=== PATIENT | male | born 1940 | race Caucasian/White ===

== ENCOUNTER → 2024-02-08 08:57 | Outpatient (BNVA) | payer MEDICARE, MEDICAID, SELFPAY | PROVIDERS: Visit Provider Nurse Practitioner Gerontology | DX: Z87.438 Personal history of other diseases of male genital organs (principal); R33.8 Other retention of urine; Z96.0 Presence of urogenital implants | CPT/HCPCS: 99205 ==

== ENCOUNTER 2024-03-10 06:19 | Day surgery (SDC) | payer MEDICARE, MEDICAID, SELFPAY ==
[2024-03-10] VITALS (19 sets, daily range): BP systolic 83–131; BP diastolic 30–92; PULSE 50–78; RESP 10–19; TEMP 36–36.3; O2SAT 90–97; BMI 34.7
--- NOTE | 2024-03-10 06:55 | W.PM.HP.N ---
Date of service: 03/10/24 Time of Service: 06:55 Assessment and Plan Assessment and plan (1) History of balanitis: Status: Acute (2) Indwelling urethral catheter present: (3) Paraplegia: (4) Spinal stenosis: (5) Urinary retention: Assessment and plan: We will plan to circumcision. And we will change his urethral catheter today. Ultimately he may want to consider suprapubic tube rather than the urethral catheter. History of Present Illness History of Present Illness Chief Complaint: Balanitis Narrative: This is an 83-year-old gentleman who is new to our practice and his urology records are a bit sketchy at this point. He has a history of urinary retention which required an indwelling catheter. He has apparently been on tamsulosin and has failed at least 1 voiding trial. I am not certain about any additional workup. He has a history of cervical stenosis and was not felt to be a candidate for clean intermittent catheterization. If he is unable to void, he would require some type of chronic indwelling catheter. Discussions have been had regarding placement of a suprapubic tube, but so far the patient would like to continue with the urethral catheter. He has been having cracking and bleeding of the foreskin. He is been treated for recurrent balanitis and is interested in a circumcision to help prevent the frequent balanitis episodes. He is well aware that the procedure will not help his urinary retention. Review of Systems Narrative: No fevers or chills No vision change or dysphasia No diabetes or thyroid dysfunction No hemoptysis Hx A Fib. No chest pain GERD. Chronic constipation. No hepatitis, ulcers, jaundice Parplegia. No seizures or strokes No bleeding disorders or anemia No gout PFSH All Active Problems History of balanitis (Acute) Medical History Colostomy in place IBS (irritable bowel syndrome) Coronary atherosclerosis Cervical cord compression with myelopathy Cervical spinal stenosis Hx of myocardial infarction Unknown per [facility] GERD (gastroesophageal reflux disease) RBBB NSVT (nonsustained ventricular tachycardia) 1st degree AV block Afib Hypomagnesemia 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 Spinal stenosis Urinary retention Sigmoid volvulus Laceration of foreskin Former smoker Indwelling urethral catheter present Lung cancer CAD (coronary artery disease) COPD (chronic obstructive pulmonary disease) Surgical History H/O colectomy Social History Smoking/Tobacco Use Status: Former Tobacco Use Quit Date: 03/10/00 Smoking risk assessment performed?: Yes Alcohol Intake: former Substance use type: does not use Housing: intermediate Additional Social history: UTAP Meds Allergies and Home Medications Allergies Allergy/AdvReac Type Severity Reaction Status Date / Time No Known Allergies Allergy Verified 03/10/24 06:27 Home Medications ?Medication ?Instructions ?Recorded ?Confirmed ?Type atorvastatin 40 mg tablet 40 mg PO DAILY 02/02/24 03/10/24 History gabapentin 100 mg capsule 100 mg PO TID 02/02/24 03/10/24 History linaclotide 145 mcg capsule 145 mcg PO DAILY 02/02/24 03/10/24 History (Linzess) metoprolol succinate 25 mg capsule 25 mg PO DAILY 02/02/24 03/10/24 History sprinkle, ext. release 24 hr pantoprazole 20 mg tablet,delayed 20 mg PO DAILY 02/02/24 03/10/24 History release tamsulosin 0.4 mg capsule (Flomax) 0.4 mg PO DAILY 02/02/24 03/10/24 History acetaminophen 500 mg capsule 1,000 mg PO QID PRN 02/08/24 03/10/24 History apixaban 5 mg tablet (Eliquis) 5 mg PO BID 02/08/24 03/09/24 History ascorbic acid (vitamin C) 500 mg 1 g PO DAILY 02/08/24 03/10/24 History tablet baclofen 10 mg tablet 20 mg PO BID 02/08/24 03/10/24 History budesonide-formoterol HFA 160 1 puff inhalation BID 02/08/24 03/10/24 History mcg-4.5 mcg/actuation aerosol inhaler calcium carbonate 1,000 mg PO BID PRN 02/08/24 03/10/24 History melatonin 3 mg capsule 3 mg PO HS PRN 02/08/24 03/09/24 History ondansetron HCl 4 mg tablet 4 mg PO Q4H PRN 02/08/24 03/10/24 History sennosides 8.6 mg tablet (senna) 8.6 mg PO BID 02/08/24 03/10/24 History simethicone 125 mg capsule (Gas 125 mg PO BID-QID PRN 02/08/24 03/10/24 History Relief (simethicone)) Exam Const General: cooperative and comfortable Neck Neck: supple Resp Effort & Inspection: normal respiratory effort Auscultation: clear to auscultation bilaterally Cardio Rate: regular rate Rhythm: regular rhythm GI Palpation: soft and no masses Penis: phimosis and ulceration Other: arnold in place Time Spent Time spent with Patient: <40 minutes Time was spent: other
--- NOTE | 2024-03-10 07:01 | ANES.PREOP_ITS ---
General Info Date of Service Date Performed: 03/10/24 Height: 6 ft 1 in Weight: 119.295 kg Body Mass Index (BMI): 34.7 Surgical Procedure: Operation Date: 03/10/24 07:40 Proposed Procedure Side Surgeon p Circumcision Dieter Vidal MD Actual Procedure Side Surgeon p Circumcision Dieter Vidal MD Pre-Op Diagnosis Post-Op Diagnosis History of balanitis Meds Allergies and Home Medications Allergies Allergy/AdvReac Type Severity Reaction Status Date / Time No Known Allergies Allergy Verified 03/10/24 06:27 Home Medication ?Medication ?Instructions ?Recorded atorvastatin 40 mg tablet 40 mg PO DAILY 02/02/24 gabapentin 100 mg capsule 100 mg PO TID 02/02/24 linaclotide 145 mcg capsule 145 mcg PO DAILY 02/02/24 (Linzess) metoprolol succinate 25 mg capsule 25 mg PO DAILY 02/02/24 sprinkle, ext. release 24 hr pantoprazole 20 mg tablet,delayed 20 mg PO DAILY 02/02/24 release tamsulosin 0.4 mg capsule (Flomax) 0.4 mg PO DAILY 02/02/24 acetaminophen 500 mg capsule 1,000 mg PO QID PRN 02/08/24 apixaban 5 mg tablet (Eliquis) 5 mg PO BID 02/08/24 ascorbic acid (vitamin C) 500 mg 1 g PO DAILY 02/08/24 tablet baclofen 10 mg tablet 20 mg PO BID 02/08/24 budesonide-formoterol HFA 160 1 puff inhalation BID 02/08/24 mcg-4.5 mcg/actuation aerosol inhaler calcium carbonate 1,000 mg PO BID PRN 02/08/24 melatonin 3 mg capsule 3 mg PO HS PRN 02/08/24 ondansetron HCl 4 mg tablet 4 mg PO Q4H PRN 02/08/24 sennosides 8.6 mg tablet (senna) 8.6 mg PO BID 02/08/24 simethicone 125 mg capsule (Gas 125 mg PO BID-QID PRN 02/08/24 Relief (simethicone)) Current Visit Medications: Current Medications Generic Name Dose Route Start Last Admin Trade Name Freq PRN Reason Stop Dose Admin Ringer's Solution 1,000 mls @ 80 mls/hr 03/10/24 06:00 IV 03/10/24 23:59 INFUSION FRIEDA Cefazolin Sodium/Dextrose 2 gm in 50 mls @ 100 mls/hr 03/10/24 06:00 Ancef Duplex IVPB 03/10/24 23:59 PREOP FRIEDA IV Miscellaneous Supplies 1 each 03/10/24 06:00 Iv Access IV 03/10/24 23:59 DIRECTED FRIEDA Sodium Chloride 0 ml 03/10/24 06:00 Normal Saline Flush 10 Ml Syr IV 03/10/24 23:59 PRN PRN Sodium Chloride 0 ml 03/10/24 06:00 Normal Saline 10 Ml Vial IJ 03/10/24 23:59 DIRECTED PRN Sterile Water 0 ml 03/10/24 06:00 Water,Injection,Sterile 10 Ml Vial IJ 03/10/24 23:59 DIRECTED PRN PFSH Active Problems Active Problems: Problem Status Onset Code History of balanitis Acute Z87.438 Medical History Medical History Colostomy in place IBS (irritable bowel syndrome) Coronary atherosclerosis Cervical cord compression with myelopathy Cervical spinal stenosis Hx of myocardial infarction Unknown per [facility] GERD (gastroesophageal reflux disease) RBBB NSVT (nonsustained ventricular tachycardia) 1st degree AV block Afib Hypomagnesemia 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 Spinal stenosis Urinary retention Sigmoid volvulus Laceration of foreskin Former smoker Indwelling urethral catheter present Lung cancer CAD (coronary artery disease) COPD (chronic obstructive pulmonary disease) Surgical History Surgical History H/O colectomy Tobacco Smoking/Tobacco Use Status: Former Tobacco Use Alcohol Alcohol Intake: former Substance Use Substance use type: does not use Vital Signs and Lab Results Vital Signs Most Recent Vital Signs in EMR: Most Recent Vital Signs Temp Pulse Resp BP Pulse Ox 36.2 C L 62 18 105/54 L 94 03/10/24 06:24 03/10/24 06:24 03/10/24 06:24 03/10/24 06:24 03/10/24 06:24 Lab Results Blood Type / Crossmatch: No Data to Display Complete Blood Count: No Data to Display Complete Metabolic Panel: No Data to Display Liver Function Panel: No Data to Display Coagulation Panel: No Data to Display Cardiac Panel: No Data to Display Arterial Blood Gas: No Data to Display Venous Blood Gas: No Data to Display Pancreas Panel: No Data to Display Thyroid Panel: No Data to Display Infectious Disease: No Data to Display Blood Cultures: No Data to Display Toxicology Panel: No Data to Display Anesthesia Assessment and Plan Anesthesia History Personal History: No History of Anesthesia Complications Family History: Family History Unknown Exercise Tolerance Exercise Tolerance: Metabolic Equivalents<4 Pertinent Negatives Pertinent Negatives: No Symptoms of GERD Cardiac & Pulmonary Exam Cardiac Exam: Normal S1/S2 Heart Sounds Pulmonary Exam: Rales Present (Inspiratory crackles in bilat bases) Implantable Cardiac Device Does patient have a Pacemaker or an ICD?: No Airway Exam Known Difficult Airway: No Mallampati Class: 3 Mouth Opening: Normal (> 3cm) Thyromental Distance: Greater than 3 cm Neck Range of Motion: Full ROM Neck Circumference: Thick Teeth Condition: Edentulous ASA Classification ASA Score: ASA 4 Emergency Case?: No NPO Status NPO Status: NPO Clears >2 hours, Solids >8 hours Anesthesia Plan Resuscitation Status: Full Code Anesthesia Technique: General Anesthesia Airway Planned: Natural Airway Monitors Used: Standard Monitors
[2024-03-10] MEDS: Lactated Ringers 1,000 ML 80 ML IV (07:28)
[2024-03-10] MEDS: ceFAZolin 2 GM/50 ML BAG IVPB (07:40)
[2024-03-10] MEDS: Bupivacaine 0.5% Pres-Free 30 ML VIAL (08:00)
--- NOTE | 2024-03-10 08:33 | W.PM.DSUDISC ---
Date of service: 03/10/24 Time of Service: 08:33 Discharge Plan Disposition Patient Disposition: Other Disposition Not Listed Other Facility: [facility] Condition: Stable Discharge Details Reason For Visit: circumcision Attending Provider: Dieter Vidal Home Meds and New Rx's Prescriptions: No Action ascorbic acid (vitamin C) 500 mg tablet 1 g PO DAILY sennosides [senna] 8.6 mg tablet 8.6 mg PO BID melatonin 3 mg capsule 3 mg PO HS PRN budesonide-formoterol 160-4.5 mcg/actuation HFA aerosol inhaler 1 puff inhalation BID baclofen 10 mg tablet 20 mg PO BID Eliquis 5 mg tablet 5 mg PO BID simethicone [Gas Relief (simethicone)] 125 mg capsule 125 mg PO BID-QID PRN ondansetron HCl 4 mg tablet 4 mg PO Q4H PRN calcium carbonate 500 mg calcium (1,250 mg) tablet,chewable 1,000 mg PO BID PRN acetaminophen 500 mg capsule 1,000 mg PO QID PRN atorvastatin 40 mg tablet 40 mg PO DAILY Linzess 145 mcg capsule 145 mcg PO DAILY pantoprazole 20 mg tablet,delayed release (DR/EC) 20 mg PO DAILY metoprolol succinate 25 mg capsule,sprinkle,ER 24hr 25 mg PO DAILY tamsulosin [Flomax] 0.4 mg capsule 0.4 mg PO DAILY gabapentin 100 mg capsule 100 mg PO TID Discharge Instructions Additional Instructions: If dressing remains in place by tomorrow, get dressing wet and remove bandage. no need to replace bandage afterwards may restart anticoagulants 03/12 Follow up appt 2 to 3 weeks for wound check Activity:: Activity as Tolerated Remove Dressings/Wound Care:: 24 hours Shower/Bathe:: 24 hours Diet:: As Tolerated Discharge Orders Discharge Orders: Discharge Order (Routine); Ordered 03/10/24 Ordered By: Dieter Vidal DS: Diagnosis Discharge Diagnosis (1) History of balanitis: Status: Acute (2) Indwelling urethral catheter present: (3) Paraplegia: (4) Spinal stenosis: (5) Urinary retention:
--- NOTE | 2024-03-10 08:37 | W.PM.OP ---
Date of service: 03/10/24 Time of Service: 08:37 Operative Note Operative Note DATE OF PROCEDURE: 03/10/24 PRE-OP DIAGNOSIS: Balanitis POST-OP DIAGNOSIS: same Urethral erosion PROCEDURE: circumcision SURGEON: Dieter Vidal ANESTHESIA TYPE: Local By Surgeon and General:No Airway Refer to Anesthesia Record ESTIMATED BLOOD LOSS: 5 PATHOLOGY: none sent COMPLICATIONS: None Patient was transported to: PACU Patient's condition: stable Implants: 14 Cypriot urethral catheter with 10 cc of sterile water in balloon Indications: This is an 83-year-old gentleman who has a history of paraplegia related to a cervical spine injury. He has urinary retention that is managed with an indwelling urethral catheter. He has had recurrent episodes of balanitis and ulcerations on the penis. He also has significant urethral erosion. We had discussed converting his urethral catheter to a suprapubic tube, but the patient is not interested in an SP tube currently. He is agreeable to a circumcision in an attempt to decrease the local skin complications. He understands that the procedure will not help his urethral erosion or any type of urinary tract infection. 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 He was given IV antibiotics. He is placed in the supine position. After successful induction of general anesthesia, his indwelling urethral catheter was removed. His genitalia was then prepped and draped. A 14 Cypriot Daley catheter was then passed back through the urethra into the bladder. The catheter balloon was inflated with 10 cc of sterile water. We clamped the catheter while we performed the circumcision. A field block was performed using quarter percent Marcaine. A circumferential incision was made on the outer aspect of the foreskin at approximately the level of the coronal sulcus. We adjusted our incision to include some of the ulcerated skin areas in the specimen to be discarded. Once the outer circumferential incision was made, the foreskin was retracted and a second circumferential incision was made on the inner aspect of the foreskin just below the level of the coronal sulcus. Due to the urethral erosion, we adjusted the incision a bit overlying the urethra so that there would be extra tissue to close in this region. All redundant skin was excised. We inspected the underlying tissue for hemostasis and any bleeding was cauterized with the Bovie. The skin edges of the penile skin were then reapproximated using simple interrupted 4-0 chromic sutures. At the completion of the procedure, the catheter was unclamped and hooked to gravity drainage. A Xeroflo dressing was applied to the incision site. The patient tolerated the procedure well with no complications.
--- NOTE | 2024-03-10 09:22 | W.ANESPOSTOP ---
Postoperative Evaluation Date, Time and Location Date Performed: 03/10/24 Time Performed: :22 Patient Location: Day Surgery Unit Vital Signs Most Recent Imported Vital Signs: Most Recent Vital Signs Temp Pulse Resp BP Pulse Ox 36.3 C L 66 15 98/50 L 93 03/10/24 09:00 03/10/24 09:06 03/10/24 09:06 03/10/24 09:06 03/10/24 09:06 Pain Score Most Recent Pain Score: Most Recent Pain Score Pain Level 0 03/10/24 09:00 Assessment Mental Status: Awake (Alert & Oriented to Patient Baseline) Airway and Respiratory Function: Patent airway with normal (patient baseline) respiratory exam Cardiovascular Function: Hemodynamically Stable Hydration Status: Adequately Hydrated Nausea & Vomiting: No Nausea or Vomiting Pain: Pt. Denies Any Pain Peripheral Nerve Block: Patient did not receive a nerve block
== END 2024-03-10 10:08 | disposition other institution (70) ==
PROVIDERS: Visit Provider Urology
PROC: (CPT 54161; principal; 2024-03-10 07:30)
DX: N48.1 Balanitis (principal); G82.20 Paraplegia, unspecified; R33.9 Retention of urine, unspecified
CPT/HCPCS: 54161; J0665; J0690; J2371; J2704

== ENCOUNTER → 2024-03-28 13:54 | Outpatient (BNVA) | payer MEDICARE, MEDICAID, SELFPAY | PROVIDERS: Visit Provider Urology | DX: R33.8 Other retention of urine (principal); Z87.438 Personal history of other diseases of male genital organs; Z96.0 Presence of urogenital implants | CPT/HCPCS: 99213 ==

== ENCOUNTER 2024-08-29 09:07 | Emergency (ER) | payer MEDICARE, MEDICAID, SELFPAY ==
[2024-08-29] VITALS (73 sets, daily range): BP systolic 94–154; BP diastolic 54–117; PULSE 68–107; RESP 18; TEMP 36.7; O2SAT 80–100
--- NOTE | 2024-08-29 09:20 | ED.GENADUL_ITS ---
Discharge Plan Disposition Patient Disposition: Home Condition: Stable Discharge Details Clinical Impression: Hematuria Primary Care Provider: Unknown,Unknown ED Provider: Meng Deleon Home Meds and New Rx's Prescriptions: Continued ascorbic acid (vitamin C) 500 mg tablet 1 g PO DAILY sennosides [senna] 8.6 mg tablet 8.6 mg PO BID melatonin 3 mg capsule 3 mg PO HS PRN budesonide-formoterol 160-4.5 mcg/actuation HFA aerosol inhaler 1 puff inhalation BID baclofen 10 mg tablet 20 mg PO BID simethicone [Gas Relief (simethicone)] 125 mg capsule 125 mg PO BID-QID PRN ondansetron HCl 4 mg tablet 4 mg PO Q4H PRN calcium carbonate 500 mg calcium (1,250 mg) tablet,chewable 1,000 mg PO BID PRN acetaminophen 500 mg capsule 1,000 mg PO QID PRN atorvastatin 40 mg tablet 40 mg PO DAILY Linzess 145 mcg capsule 145 mcg PO DAILY pantoprazole 20 mg tablet,delayed release (DR/EC) 20 mg PO DAILY metoprolol succinate 25 mg capsule,sprinkle,ER 24hr 25 mg PO DAILY tamsulosin [Flomax] 0.4 mg capsule 0.4 mg PO DAILY gabapentin 100 mg capsule 100 mg PO TID loratadine [Alavert] 10 mg tablet,disintegrating 10 mg PO DAILY lactulose [Constulose] 10 gram/15 mL solution 10 g PO DAILY senna 8.6 mg capsule 8.6 mg PO BID albuterol sulfate 90 mcg/actuation aerosol powdr breath activated 2 inh inhalation Q4H Held Eliquis 5 mg tablet 5 mg PO BID Hold Instructions: Resume on 09/14/24. patient should hold eliquis until hematuria workup is complete with urology which may be beyond 09/14 Eliquis 5 mg tablet 5 mg PO BID Hold Instructions: Resume on 09/14/24. patient should hold eliquis until hematuria workup is done by urology which may be longer then 09/14 Discharge Instructions Additional Instructions: You had your bladder irrigated with urology. Please hold your Eliquis until you are done your hematuria workup with urology. Dr. Vidal's office should be reaching out to you to arrange for follow-up. Return to the emergency department if you develop new symptoms such as high fevers or you feel more ill. HPI General Mode of arrival: EMS . Date/Time Provider Initiated Documentation: 08/29/24 09:13 . Limitations to Documentation: no limitations . Information obtained by: patient . History of Present Illness 84 year old M presents to the emergency department with the chief complaint of hematuria in arnold which was removed at [facility], described as moderate, Patient started experiencing this day(s) (3) and it has been constant. No relieving factors improve symptom(s), No exacerbating factors reported . Patient notes no other symptoms.. Patient did receive the following treatments prior to arrival, none Related Data Home Medications ?Medication ?Instructions ?Recorded ?Confirmed atorvastatin 40 mg tablet 40 mg PO DAILY 02/02/24 08/29/24 gabapentin 100 mg capsule 100 mg PO TID 02/02/24 08/29/24 linaclotide 145 mcg capsule 145 mcg PO DAILY 02/02/24 08/29/24 (Linzess) metoprolol succinate 25 mg capsule 25 mg PO DAILY 02/02/24 08/29/24 sprinkle, ext. release 24 hr pantoprazole 20 mg tablet,delayed 20 mg PO DAILY 02/02/24 08/29/24 release tamsulosin 0.4 mg capsule (Flomax) 0.4 mg PO DAILY 02/02/24 08/29/24 acetaminophen 500 mg capsule 1,000 mg PO QID PRN 02/08/24 08/29/24 apixaban 5 mg tablet (Eliquis) 5 mg PO BID 02/08/24 08/29/24 ascorbic acid (vitamin C) 500 mg 1 g PO DAILY 02/08/24 08/29/24 tablet baclofen 10 mg tablet 20 mg PO BID 02/08/24 08/29/24 budesonide-formoterol HFA 160 1 puff inhalation BID 02/08/24 08/29/24 mcg-4.5 mcg/actuation aerosol inhaler calcium carbonate 1,000 mg PO BID PRN 02/08/24 08/29/24 melatonin 3 mg capsule 3 mg PO HS PRN 02/08/24 08/29/24 ondansetron HCl 4 mg tablet 4 mg PO Q4H PRN 02/08/24 08/29/24 sennosides 8.6 mg tablet (senna) 8.6 mg PO BID 02/08/24 08/29/24 simethicone 125 mg capsule (Gas 125 mg PO BID-QID PRN 02/08/24 08/29/24 Relief (simethicone)) albuterol sulfate 90 mcg/actuation 2 inh inhalation Q4H 08/29/24 08/29/24 breath activated powder inhaler apixaban 5 mg tablet (Eliquis) 5 mg PO BID 08/29/24 08/29/24 lactulose 10 gram/15 mL oral 10 g PO DAILY 08/29/24 08/29/24 solution (Constulose) loratadine 10 mg disintegrating 10 mg PO DAILY 08/29/24 08/29/24 tablet (Alavert) sennosides 8.6 mg capsule (senna) 8.6 mg PO BID 08/29/24 08/29/24 Allergies Allergy/AdvReac Type Severity Reaction Status Date / Time No Known Allergies Allergy Verified 08/29/24 11:18 General Stated Complaint: Urinary TOMMY: 2 Review of Systems All systems reviewed & are unremarkable except as noted in HPI and below Constitutional Constitutional: Denies chills, Denies fever(s) and Denies weakness Cardiovascular Cardiovascular: Denies chest pain and Denies dyspnea Respiratory Respiratory: Denies cough and Denies dyspnea Gastrointestinal Gastrointestinal: Denies abdominal pain, Denies nausea and Denies vomiting Genitourinary Genitourinary: Reports hematuria Neurologic Neurologic: Denies weakness Exam Const General: no acute distress Orientation: alert [facility] Head: normal to inspection Ears: external ears normal General nose exam: external nose normal Mouth: moist mucous membranes Eyes General: appearance normal, both eyes and all related structures Neck Neck: normal visual inspection Resp Effort & Inspection: normal respiratory effort and able to speak in complete sentences Cardio Rate: regular rate GI Palpation: nontender Skin General skin exam: no rashes or lesions noted Neuro General: patient alert and patient oriented x3 Extrem General: normal to inspection Psych Mental Status: mental status grossly normal Course Vital Signs Vital signs: Vital Signs Temperature 36.7 C 08/29/24 09:08 Pulse 94 H 08/29/24 09:08 Respiratory Rate 18 08/29/24 09:08 Blood Pressure 148/117 H 08/29/24 09:08 Pulse Oximetry 99 08/29/24 09:08 Temperature 36.7 C 08/29/24 09:13 Temperature Source Oral 08/29/24 09:13 Pulse 94 H 08/29/24 09:13 Respiratory Rate 18 08/29/24 09:13 Blood Pressure 148/117 H 08/29/24 09:13 Blood Pressure Position Supine 08/29/24 09:13 Pulse Oximetry 99 08/29/24 09:13 Oxygen Delivery Method Room Air 08/29/24 09:13 Oxygen Flow Rate 0 08/29/24 09:13 Medical Decision Making 84-year-old male who is on apixaban for A-fib and has a chronic indwelling Arnold from a prior cervical spinal procedure causing urinary retention comes in from the [facility] with EMS after having 3 days of blood in his Arnold and they were unable to flush his Arnold today so was removed and was sent here. He denies any fevers or vomiting, his abdomen is soft and nontender. He does have a blood clot at the urethral meatus which is removed. Will have nursing place a Arnold to try and irrigate his bladder. Will also check a CBC CMP and co agulation studies. Differential Diagnosis Differential Diagnosis: Hematuria, anticoagulated Lab Data Lab results reviewed: Yes I reviewed the patient's lab results. Quality:SDOH Health Related Social Needs: No Data to Display PFSH All Active Problems (Updated 08/29/24 @ 15:06 by Meng Deleon MD) Hematuria (Acute) Clot retention of urine (Acute) Gross hematuria (Acute) History of balanitis (Acute) Medical History (Updated 08/29/24 @ 15:06 by Meng Deleon MD) Colostomy in place IBS (irritable bowel syndrome) Coronary atherosclerosis Cervical cord compression with myelopathy Cervical spinal stenosis Hx of myocardial infarction Unknown per [facility] GERD (gastroesophageal reflux disease) RBBB NSVT (nonsustained ventricular tachycardia) 1st degree AV block Afib Hypomagnesemia 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 Spinal stenosis Urinary retention Sigmoid volvulus Laceration of foreskin Former smoker Indwelling urethral catheter present Lung cancer CAD (coronary artery disease) COPD (chronic obstructive pulmonary disease) Surgical History H/O colectomy Social History Smoking/Tobacco Use Status: Former Tobacco Use Quit Date: 03/10/00 Smoking risk assessment performed?: Yes Alcohol Intake: former Substance use type: does not use Housing: [facility] Additional Social history: UTAP
[2024-08-29 09:44] LABS: Abs Immature Grans 0.07 10^3/uL (0.0-0.06); Absolute Basophil Count 0.09 10^3/uL (0.0-0.2); Absolute Monocyte Count 1.15 10^3/uL (0.1-0.8); Basophils % 0.6 %; HCT 49.9 % (40.0-50.0); HGB 15.1 g/dL (13.5-17.5); Immature Grans % 0.5 %; Lymphocytes % 15.4 %; MCH 25.5 pg (27.0-33.0); MCHC 30.3 % (32.0-36.0); MCV 84 fL (80-95); MPV 9.4 fL (8.0-11.0); Monocytes % 7.6 %; Neutrophils % 72.9 %; Platelet Count 318 10^3/uL (130-400); RBC 5.91 10^6/uL (4.36-5.78); RDW 16.3 % (11.8-14.1); RDW-SD 49.6 fL; WBC 15.17 10^3/uL (4.4-10.8)
[2024-08-29 09:45] LABS: Absolute Eosinophil Count 0.46 10^3/uL (0.0-0.7); Absolute Lymphocyte Count 2.34 10^3/uL (1.2-3.4); Absolute Neutrophil Count 11.06 10^3/uL (1.2-6.7)
[2024-08-29 09:58] LABS: INR 1.1 (0.9-1.1); PTT Activated 31.2 sec (20.6-30.2); Prothrombin Time 11.4 sec (9.1-11.1)
[2024-08-29 10:04] LABS: ALT 15 U/L (16-63); AST 13 U/L (15-37); Albumin 3.5 g/dL (3.4-5.0); Alkaline Phosphatase 113 U/L (46-116); Anion Gap 9.2 mmol/L (3-11); BUN 16 mg/dL (7-18); Bilirubin, Total 0.7 mg/dL (0.2-1.0); CO2 27.8 mmol/L (21.0-32.0); CREATININE 1.2 mg/dL (0.70-1.30); Calcium 9.9 mg/dL (8.5-10.1); Chloride 103 mmol/L (98-107); Estimated GFR 60.38 (mL/min/1.73m2); Glucose 116 mg/dL (74-106); Magnesium 2.1 mg/dL (1.8-2.4); Potassium 4.8 mmol/L (3.5-5.1); Sodium 140 mmol/L (136-145); Total Protein 9.3 g/dL (6.4-8.2)
[2024-08-29] MEDS: HYDROmorphone 2 MG/ML SYR 1 MG IVP ×2 (10:14→13:28)
[2024-08-29] MEDS: Oxybutynin-CR 5 MG TABCR 10 MG PO (10:18)
--- NOTE | 2024-08-29 13:45 | W.UROLOGYCON ---
Date of service: 08/29/24 Time of Service: 13:45 Assessment and Plan Assessment and plan (1) Gross hematuria: Status: Acute (2) Clot retention of urine: Status: Acute Assessment and plan: I believe we have successfully evacuated the clots in his bladder. I would recommend running the entire bag of continuous bladder irrigation before discontinuing the CBI. If the resultant urine output is still transparent, we can put a catheter plug on the irrigation port and discharge him to his facility with the irrigating catheter hooked to gravity drainage. I would ask that he hold his anticoagulant until we complete his hematuria workup. My office will contact the patient and his caregivers to arrange for a CT urogram followed by a cystoscopy in the office. History of Present Illness History of Present Illness Chief Complaint: Hematuria Narrative: This is an 84-year-old gentleman who has a chronic indwelling urethral catheter. The catheter is changed on a monthly basis by the caregivers at his residence. He is anticoagulated because of a history of atrial fibrillation and myocardial infarctions. The patient noticed gross hematuria with clots about 3 days ago. The caregivers at his residence attempted to flush the catheter, but they were not successful. His catheter was removed and he was sent to the emergency department. While in the ED, a new catheter was placed and multiple clots were hand irrigated. The output was still quite bloody, so I was consulted. Both the catheter and the anticoagulation are chronic for this gentleman. He has had some episodes of hematuria previously but he has never developed clot retention. He does not recall any specific trauma prior to developing this episode of hematuria. Review of Systems Narrative: He does not have any fevers or chills He has very little sensation in the perineal area PFSH All Active Problems (Updated 08/29/24 @ 13:52 by Dieter Vidal MD) Clot retention of urine (Acute) Gross hematuria (Acute) History of balanitis (Acute) Medical History (Updated 08/29/24 @ 13:52 by Dieter Vidal MD) Colostomy in place IBS (irritable bowel syndrome) Coronary atherosclerosis Cervical cord compression with myelopathy Cervical spinal stenosis Hx of myocardial infarction Unknown per [facility] GERD (gastroesophageal reflux disease) RBBB NSVT (nonsustained ventricular tachycardia) 1st degree AV block Afib Hypomagnesemia 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 Spinal stenosis Urinary retention Sigmoid volvulus Laceration of foreskin Former smoker Indwelling urethral catheter present Lung cancer CAD (coronary artery disease) COPD (chronic obstructive pulmonary disease) Surgical History H/O colectomy Social History Smoking/Tobacco Use Status: Former Tobacco Use Quit Date: 03/10/00 Smoking risk assessment performed?: Yes Alcohol Intake: former Substance use type: does not use Housing: penitentiary Additional Social history: [facility] Exam Narrative Exam Narrative: He does not appear uncomfortable His vital signs are documented elsewhere There is urethral erosion from his chronic indwelling urethral catheters. There is an [address] with grossly bloody urine draining The catheter balloon was deflated and the catheter was removed. 2% Xylocaine jelly was instilled into the urethra and I initially attempted to pass a 24 [place] coud? tipped irrigating catheter through the urethra into the bladder. Resistance was met at the bladder neck and the catheter was not successfully placed. Likewise, I was unable to pass a 22 [place] catheter, but I was able to place a 20 [place] coud? tipped irrigating catheter. I inflated the catheter balloon with 20 cc of sterile water. I hand irrigated the catheter and obtained multiple clots. I still felt some resistance while here and irrigating, so I passed a guidewire through the lumen of the irrigating catheter, deflated the catheter balloon and removed the 20 [place] coud? tipped catheter. I was still unable to pass the 24 [place] coud? tipped irrigating catheter over the wire, but I was successful in passing the 22 [place] coud? tipped irrigating catheter over the guidewire. The catheter balloon was inflated with 20 cc of sterile water and the wire was removed. I was then successful at hand irrigating other clots from the bladder. We began continuous bladder irrigation in the resultant irrigant was crystal-clear. The catheter was hooked to gravity drainage. Results Last Vital Signs Temp 36.7 C 08/29/24 09:13 Pulse 79 08/29/24 11:46 Resp 18 08/29/24 09:13 BP 102/62 08/29/24 11:46 Pulse Ox 97 08/29/24 11:40 Labs 08/29/24 09:35 08/29/24 09:35 Labs: Laboratory Results - last 24 hr 08/29/24 09:35 WBC 15.17 H RBC 5.91 H Hgb 15.1 Hct 49.9 MCV 84 MCH 25.5 L MCHC 30.3 L RDW 16.3 H Plt Count 318 MPV 9.4 Immature Gran % 0.5 Neutrophils % 72.9 Lymphocytes % 15.4 Monocytes % 7.6 Eosinophils % 3.0 Basophils % 0.6 Nucleated RBC % 0.0 Absolute Neutrophils 11.06 H Absolute Lymphocytes 2.34 Absolute Monocytes 1.15 H Absolute Eosinophils 0.46 Absolute Basophils 0.09 PT 11.4 H INR 1.1 APTT 31.2 H Sodium 140 Potassium 4.8 Chloride 103 Carbon Dioxide 27.8 Anion Gap 9.2 BUN 16 Creatinine 1.2 Est GFR (CKD-EPI 2020) 60.38 Glucose 116 H Calcium 9.9 Magnesium 2.1 Total Bilirubin 0.7 AST 13 L ALT 15 L Alkaline Phosphatase 113 Total Protein 9.3 H Albumin 3.5
== END 2024-08-29 16:11 | disposition home or self-care (01) ==
PROVIDERS: Emergency Provider Emergency Medicine
DX: R31.0 Gross hematuria (principal); R33.8 Other retention of urine; I25.10 Atherosclerotic heart disease of native coronary artery without angina pectoris; I25.2 Old myocardial infarction; I10 Essential (primary) hypertension; I48.91 Unspecified atrial fibrillation; J44.9 Chronic obstructive pulmonary disease, unspecified; Z93.3 Colostomy status; Z79.01 Long term (current) use of anticoagulants
CPT/HCPCS: 36415; 51702; 80053; 96374; 96376; 99283; 99284; 83735; 85025; 85610; 85730; J1171

== ENCOUNTER 2024-09-08 01:20 | Outpatient (CLI) | payer MEDICARE, MEDICAID, SELFPAY ==
[2024-09-08] MEDS: Normal Saline - Diluent 50 ML VIAL IJ (09:35)
[2024-09-08] MEDS: Omnipaque 350 MG/ML 500 ML BTL-Imaging package 100 ML IJ (09:54)
--- NOTE | 2024-09-08 10:16 | DI.CT_ITS ---
Exam(s) CT ABDOMEN PELVIS WO/W EXAM: CT ABDOMEN PELVIS WO/W CLINICAL HISTORY: hematuria,r31.0 TECHNIQUE: Imaging Protocol: Axial computed tomography images with coronal and sagittal reformatted images were created and reviewed. CONTRAST MATERIAL: Intravenous: Omnipaque 350 Contrast volume:100 mL Oral: No COMPARISON: No exams were available for comparison FINDINGS: ABDOMEN: Lung Bases: There is a small left pleural effusion. It may be in capsulated. There is chronic scarr ing in the lung bases. Liver: Normal density. No measurable mass. Portal, Superior Mesenteric, and Splenic Veins: Unremarkable. Gallbladder and Biliary Tract: No radiodense calculus or dilation. Pancreas: Normal density, no abnormal calcifications or inflammatory process. Spleen: Normal. Adrenals: No masses seen. Kidneys: Normal size, contour and axis. No radiodense stones or obstructive uropathy. There are bilat eral simple renal cysts. No follow-up is recommended. Incidental note is made of a retroaortic left renal vein. Abdominal Aorta: Abdominal portion non-dilated. Atherosclerotic calcification is present. Bowel: There is been a sigmoid resection and a left lower quadrant colostomy is in place. There is s tool throughout the colon suggesting constipation. No evidence of appendicitis. No bowel wall thick ening or obstruction. Peritoneal Cavity: No ascites, collection or mesenteric inflammatory response. No free air. Lymph Nodes: Within normal limits. Bones: Within normal limits for the patient's age. Soft Tissues: Unremarkable. PELVIS: Bladder: There is a Daley catheter in place. There is diffuse thickening of the wall of the urinary bladder. The bladder is incompletely distended. Reproductive Organs: Prostate gland is mildly enlarged. Lymph Nodes: Within normal limits. Bones: Within normal limits for the patient's age. IMPRESSION: 1. No evidence of nephrolithiasis or obstructive uropathy. 2. No suspicious renal masses present. 3. Bilateral simple renal cysts. No follow-up is recommended. 4. There is diffuse thickening of the wall of the urinary bladder. This may reflect inflammation or infection. Bladder mass cannot be excluded. 5. The prostate gland is mildly enlarged. RADIATION DOSE DELIVERED: 4,377.77mGy.cm Total DLP 4,377.77mGy.cm Total DLP DATA REPOSITORY: All CT scans at this facility are submitted to the National Radiology Data Registry (NRDR) Dose Index Registry (DIR) with the [employer] ([employer]). RADIATION OPTIMIZATION: All CT scans at this facility use at least one of these dose optimization te chniques: automated exposure control; mA and/or kV adjustment per patient size (includes targeted exa ms where dose is matched to clinical indication); or iterative reconstruction.
== END 2024-09-08 01:40 ==
PROVIDERS: PCP Legal Medicine; Visit Provider Urology
DX: R31.0 Gross hematuria (principal); N20.0 Calculus of kidney
CPT/HCPCS: 74178

== ENCOUNTER → 2024-09-27 10:42 | Outpatient (BNVA) | payer MEDICARE, MEDICAID, SELFPAY | PROVIDERS: PCP Legal Medicine; Visit Provider Urology | DX: R31.9 Hematuria, unspecified (principal) | CPT/HCPCS: 99213 ==

== ENCOUNTER → 2024-11-15 08:53 | Outpatient (BNVA) | payer MEDICARE, MEDICAID, SELFPAY | PROVIDERS: PCP Legal Medicine; Referring Provider Legal Medicine; Visit Provider Urology | DX: R31.0 Gross hematuria (principal) | CPT/HCPCS: 52000 ==